=== PATIENT | female | born 1960 | race Caucasian/White ===

== ENCOUNTER 2016-11-27 08:53 | Day surgery (SDC) | payer BC, OTHER ==
[2016-11-26 09:32] VITALS: BMI 23.4
[2016-11-27] VITALS (9 sets, daily range): BP systolic 92–107; BP diastolic 54–67; PULSE 54–90; RESP 16–21; Ht 157.5 cm; Wt 145.0 kg
[~2016-11-27] VITALS: Ht 157.5 cm; Wt 145.0 kg
[~2016-11-27 08:53] MED LIST: CEFAZOLIN 2 GM/50 ML (PMX) 50 ML IVPB SCH; SOD CHLORIDE 0.9% 1,000 ML IV SCH
[2016-11-27 10:10] LABS: ADD SCAN DIFF NO
[2016-11-27] MEDS ORDERED: LETR2.5T PO (10:13)
[2016-11-27 10:14] LABS: BASOPHILS % 1.1 % (0.0-2.0); EOSINOPHILS # 0.2 10^3/ul (0.0-0.5); EOSINOPHILS % 6.9 % (0.0-7.0); HEMATOCRIT 36.7 % (37.0-47.0); LYMPHOCYTES # 0.9 10^3/ul (0.8-2.9); LYMPHOCYTES % 26.6 % (15.0-51.0); MEAN CORPUSCULAR HEMOGLOBIN 30.7 pg (29.0-33.0); MEAN CORPUSCULAR HGB CONC 32.7 g/dl (32.0-37.0); MEAN CORPUSCULAR VOLUME 93.9 fl (82.0-101.0); MEAN PLATELET VOLUME 9.7 fl (7.4-10.4); MONOCYTE # 0.2 10^3/ul (0.3-0.9); MONOCYTES % 6.3 % (0.0-11.0); NEUTROPHIL # 2.1 10^3/ul (1.6-7.5); NEUTROPHILS % 58.8 % (39.0-77.0); PLATELET COUNT 205 10^3/UL (140-415); RED BLOOD COUNT 3.91 10^6/ul (4.20-5.40); RED CELL DISTRIBUTION WIDTH 12.6 % (11.5-14.5); WHITE BLOOD COUNT 3.5 10^3/ul (4.8-10.8)
[2016-11-27 10:31] LABS: INR 0.95; PARTIAL THROMBOPLASTIN TIME 28.8 Sec (25.0-35.0); PROTIME 12.7 Sec (12.2-14.2)
[2016-11-27 10:32] LABS: ALBUMIN 3.6 g/dl (3.3-4.9); ALBUMIN/GLOBULIN RATIO 1.28; BILIRUBIN,INDIRECT 0.4 mg/dl (0-1.1); BILIRUBIN,TOTAL 0.4 mg/dl (0.2-1.3); TOTAL PROTEIN 6.4 g/dl (6.1-8.1)
[2016-11-27 10:36] LABS: CALCIUM 8.8 mg/dl (8.4-10.2); CREATININE 0.54 mg/dl (0.44-1.00); POTASSIUM 3.9 mmol/L (3.5-5.1)
--- NOTE | 2016-11-27 10:38 | RADRPT ---
PROCEDURE: Chest Radiograph. CLINICAL INDICATION: Preop TECHNIQUE: Single frontal chest radiograph. COMPARISON: Chest radiograph 12/16/1939 FINDINGS: A right chest wall port infusion catheter is in place with distal tip in the right atrium. Heart si ze is within normal limits. Lung volumes are mildly decreased in there is a mild basilar atelectasi s. No infiltrate or effusion is seen. The bones are intact. IMPRESSION: 1. No evidence of acute cardiopulmonary disease. 2. Right chest wall port infusion catheter number. 3. Mild pulmonary hyperinflation with associated mild basilar atelectasis. RPTAT: AA .Andrew Lopez MD, MD Date Time Electronically viewed and signed by .Andrew Lopez MD, MD on 11/27/2016 10:38 .B/
[2016-11-27] MEDS ORDERED: MIDAZOLAM 1 MG/ML 2 ML INJ ONE (10:53)
[2016-11-27] MEDS ORDERED: METOCLOPRAMIDE 10 MG INJ ONE (10:53)
[2016-11-27] MEDS ORDERED: FENTAnyl 50 MCG/ML VIAL ONE (10:53)
[2016-11-27] MEDS ORDERED: CEFAZOLIN 1 GM INJ ONE (10:53)
[2016-11-27] MEDS ORDERED: PROPOFOL 20 ML ONE (10:53)
[2016-11-27] MEDS ORDERED: EPHEDrine SULFATE 50 MG/5 ML SYG ONE (11:14)
[2016-11-27] MEDS ORDERED: DIPHENHYDRAMINE 50 MG INJ IV PRN (11:30)
[2016-11-27] MEDS ORDERED: HYDROmorphONE (0.2 MG/ML) 10ML SYG IV PRN ×3 (11:30)
[2016-11-27] MEDS ORDERED: ONDANSETRON 4 MG INJ IV PRN (11:30)
[2016-11-27] MEDS ORDERED: METOCLOPRAMIDE 10 MG INJ IV PRN (11:30)
[2016-11-27] MEDS ORDERED: MEPERIDINE 25 MG INJ IV PRN (11:30)
[2016-11-27] MEDS ORDERED: OXYCODONE/ACETAMINOPHEN (5/325) TAB PO PRN ×2 (11:30)
--- NOTE | 2016-11-27 11:32 | RADRPT ---
Vent Rate: 59 bpm RR Interval: 0 msec IA Interval: 142 msec QRS Duration: 96 msec QT Interval: 422 msec QTC Interval: 417 msec P-R-T [place]: 37 - 34 - 35 degrees Sinus bradycardia Otherwise normal ECG Electronically Signed By: Joseph Cesar [id number]
--- NOTE | 2016-11-27 11:50 | OPR ---
DATE OF OPERATION: 11/27/2016 PREOPERATIVE DIAGNOSIS: History of left breast cancer, need for chemo port removal. POSTOPERATIVE DIAGNOSIS: History of left breast cancer, need for chemo port removal. PROCEDURE PERFORMED: Removal of chemo port right subclavian location. SURGEON: Kp Lindquist MD SUPERVISOR TELEPHONE INFORMATION: Fredis Sewell MD ANESTHESIA: General. ANESTHESIOLOGIST: Aliyah Horan MD INDICATIONS FOR PROCEDURE: The patient is a 56-year-old female, I previously had treated her for le ft breast cancer in 2013. She has completed her treatment and is doing well. She requested port re moval. She consented and was scheduled for surgery. DESCRIPTION OF PROCEDURE: The patient was brought to the operating theater, placed under general an esthesia. The right anterior thoracic region was prepped and draped in the usual sterile fashion. The previous surgical incisional scar overlying the port site was reincised with a #10 blade scalpel . Subcutaneous tissue was dissected with cautery. The port was circumferentially dissected from th e surrounding tissue and gently elevated and removed while pressure was held in infraclavicular loca tion. The port appeared grossly intact. It was sent for pathologic analysis just to confirm that i t was intact. The wound was irrigated. Minimal bleeding was controlled with cautery. The skin was then reapproximated with a 3-0 Vicryl suture in a subcuticular fashion, and benzoin and Steri-Strip s were applied. The patient tolerated the procedure well. The estimated blood loss was 5 mL. Ther e were no complications and the patient was transported in stable condition to the recovery room. Dictated By: KP LINDQUIST MD TL/ABI Conf#: [id number] DID#: [id number]
== END 2016-11-27 13:15 | disposition home or self-care (01) ==
LOC: SDS 08:53
PROVIDERS: ATTEND Surgery Surgical Oncology
DX: Z45.2 Encounter for adjustment and management of vascular access device (principal); Z85.3 Personal history of malignant neoplasm of breast
CPT/HCPCS: 36590; 71010; 80053; 85025; 85610; 85730; 88300; 93005; J0690; J2250; J2765; J3010